=== PATIENT | male | born 1995 | race Caucasian/White ===

== ENCOUNTER 2019-04-25 16:20 | Emergency (ER) | payer BC, SELFPAY ==
[2019-04-25 16:22] VITALS: BP 117/78; PULSE 89; RESP 16; TEMP 36.7; O2SAT 100; BMI 22.7
--- NOTE | 2019-04-25 16:30 | EKG12_ITS ---
Test Reason : CP Blood Pressure : / mmHG Vent. Rate : 087 BPM Atrial Rate : 087 BPM P-R Int : 124 ms QRS Dur : 082 ms QT Int : 340 ms P-R-T Axes : 068 073 015 degrees QTc Int : 409 ms Normal sinus rhythm Nonspecific T wave abnormality Abnormal ECG Confirmed by FELIBERTO DAVIS, PADMINI ([id number]), editorial specialist ORLANDO CHAN ([id number]) on 04/27/2019 11:21:50 AM Referred By: DERECK/NOEL Confirmed By:PADMINI DAO MD
--- NOTE | 2019-04-25 17:21 | RAD_ITS ---
STUDY: X-RAY CHEST REASON FOR EXAM: Male, 24 years old. Shortness of breath. TECHNIQUE: PA and lateral views of the chest. COMPARISON: April 30, 2015 FINDINGS: The lungs remain hyperinflated. There is no new focal consolidation. Normal size heart. Normal mediastinum and johnny. Normal visualized pulmonary arteries. Normal visualized aortic arch and descending thoracic aorta. Normal visualized thoracic spine. Normal visualized ribs, clavicles, and shoulders. There is no demonstrated abnormality of the visualized soft tissue structures of the upper abdomen. RAD/Chest PA and Lateral IMPRESSION: Stable examination demonstrating no acute cardiopulmonary process. Electronically Signed: Tisha Handy MD at 17:45 EST Tel , Service support ,
--- NOTE | 2019-04-25 17:25 | US_ITS ---
STUDY: VENOUS DOPPLER ULTRASOUND - LEFT LOWER EXTREMITY REASON FOR EXAM: Male, 24 years old. Left anterior lateral thigh lump. TECHNIQUE: Ultrasound evaluation of the deep vein system to include gusman-scale imaging and compression was performed. Gusman-scale imaging and Doppler sonographic evaluation, including duplex spectral analysis and qualitative color flow sonography, was performed. COMPARISON: None. FINDINGS: Common Femoral Vein: Normal compression, spontaneity and augmentation. Normal color Doppler. Common Femoral Vein/Greater Saphenous Junction: Normal compression Femoral Proximal: Normal compression. Femoral Middle: Normal compression, spontaneity and augmentation. Normal color Doppler. Femoral Distal: Normal compression. Popliteal Vein: Normal compression, spontaneity and augmentation. Normal color Doppler. Posterior Tibial Vein: Normal compression, spontaneity and augmentation. Normal color Doppler. Peroneal Vein: Normal compression, spontaneity and augmentation. Normal color Doppler. A dedicated ultrasound of the region of concern demonstrates no discrete solid or cystic lesion. US/Venous Duplex Imag/Limited/Uni IMPRESSION: No demonstrated deep vein thrombosis. Electronically Signed: Tisha Handy MD at 17:59 EST Tel , Service support ,
--- NOTE | 2019-04-25 17:25 | ED.VISSUMM ---
- ER Visit Summary Date of Service: 04/25/19 Chief Complaint: Cellulitis History of Present Illness: The patient is a 24 M with swelling to his left anterior thigh. He noticed this earlier today. Nothing seemed to bring it on or make it worse. Nothing seems to make it better. He never had this before. It causes him some discomfort. Throughout the day, he started to have chest pain or shortness of breath as well. Nothing seemed to bring this on. No history of this. No history of DVTs, travel, or other DVT/PE risk factors. No history of heart disease, lung disease, or vascular disease. He is a smoker. Physical Examination: Afebrile and vital signs unremarkable. Lungs clear. Heart regular. Patient has a soft tissue mass approximately half the size of his palm to his left anterior thigh which seems to be in the subcutaneous level. There is no significant tenderness. No skin changes. No redness. No fluctuance. He is neurovascular intact with good strength and sensation. Test Results: Ultrasound pending. EKG shows sinus rhythm at a rate of 87 with nonspecific T wave changes. Chest x-ray pending. Emergency Department Course and Treatment: I am not sure that the patient's soft tissue mass and his chest pain or shortness of breath are related. He has no risk factors for DVT or PE. We will check an ultrasound for blood clots and possibly to visualize this mass better. There is nothing to suggest abscess, muscle rupture, hematoma. We will evaluate his chest pain and shortness of breath. EKG is nonspecific sinus rhythm. Chest x-ray pending. No other pertinent findings on history or exam. Again, this is likely unrelated. Chest x-ray unremarkable. Ultrasound was negative. Ultrasound in the area of the mass did not reveal any abnormalities. Patient will need outpatient follow-up for this. There is no indication for hospitalization or further emergent testing. Patient has a PCP and will follow-up. Return for any new or worsening issues. Treatment Plan: As above Disposition: Discharged Impression: 1. Left thigh soft tissue mass This note was generated with [employer] software. It may contain incorrect words, spelling, and punctuation that were not noted in review of the chart prior to signing ED Disposition - Plan for ED Patient: Referrals: Rodolfo Harrison MD [Primary Care Provider] -
--- NOTE | 2019-04-25 17:59 | ED.DEP ---
ED Disposition - Plan for ED Patient: Instructions: CHEST PAIN, NonCardiac Referrals: Rodolfo Harrison MD [Primary Care Provider] -
[2019-04-25 18:15] VITALS: BP 121/81; PULSE 81; RESP 16; O2SAT 99
== END 2019-04-25 18:16 | disposition home or self-care (01) ==
LOC: ED 17:22
PROVIDERS: Emergency Provider Emergency Medicine; Family Provider Family Medicine; PCP Family Medicine
DX: R22.9 Localized swelling, mass and lump, unspecified (principal); F17.200 Nicotine dependence, unspecified, uncomplicated
CPT/HCPCS: 71046; 93005; 93971; 99283

== ENCOUNTER 2024-03-02 22:00 | Emergency (ER) | payer SELFPAY ==
[2024-03-02 22:07] VITALS: BP 139/91; PULSE 99; RESP 16; TEMP 36; O2SAT 100; BMI 25.8
--- NOTE | 2024-03-02 22:40 | EDS_ITS ---
HPI History of Present Illness Chief Complaint: Dental Informant: patient and spouse/S.O. Narrative Narrative: 28-year-old male has had a right mandibular molar that is decayed and was bothering him off and on for the last month but severe today. It was not hurti ng too bad yesterday. He denies any systemic symptoms or fevers. No bleeding or discharge. Pain was radiating back to his right ear earlier but not now. He denies noting any swelling. No trouble swallowing. PFSH PFSH Medical History no medical history no medical history Home Medications ?Medication ?Instructions ?Recorded ?Last Taken ?Type amoxicillin 500 mg tablet 500 mg PO TID #30 tabs 03/02/24 Unknown Rx hydrocodone-acetaminophen 5-325mg 1 tab PO Q6H PRN PRN Pain 3 days 03/02/24 Unknown Rx 5mg-325mg #10 TABLETS Allergy/AdvReac Type Severity Reaction Status Date / Time No Known Allergies Allergy Verified 03/02/24 22:09 Social History Smoking Status: Current every day smoker tobacco type: cigarettes ROS ROS ED Constitutional Constitutional ED: Denies chills or fever(s) Eyes Eyes: Denies change in vision or double vision ENT ENT ED: Reports dental pain; Denies sinus pain or throat swelling Cardiovascular Cardiovascular: Denies chest pain or palpitations Respiratory/Chest Respiratory/Chest: Denies cough or dyspnea Integumentary Denies abscess or rash Neurologic Neurologic: Denies headache(s), paresthesias or weakness EXAM Physical Exam Const Vital Signs: 03/02/24 22:07 Temperature 96.8 F L Temperature Source Temporal Pulse Rate 99 Respiratory Rate 16 Blood Pressure 139/91 H Blood Pressure Mean 107 Pulse Ox 100 Oxygen Delivery Method Room Air Positive well nourished and well developed General Appearance ED: well developed and NAD HEENT HEENT Narrative: Tooth #30 has focal decay posteriorly, the tooth is tender, there is no bleeding or discharge. There is no trismus. There is no swelling or abscess palpable or other tenderness. No tongue elevation or sublingual swelling/tenderness. Face and Sinus: sinuses nontender Throat: posterior oropharynx normal Eyes PERRL and EOMs intact bilaterally Neck no lymphadenopathy and supple General: normal visual inspection; Negative for anterior neck swelling or tenderness Resp normal respiratory effort Neuro oriented x3 and CN's II-XII intact bilaterally Sensorium / Orientation: alert Gait (Neuro): normal gait Psych mental status grossly normal and thought process normal Skin no rashes or lesions noted and no wounds MDM MDM MDM Narrative Medical decision making narrative: Patient preferred to have a dental nerve block. We discussed an inferior alveolar nerve block which he was amenable to which was attempted but did not give him good anesthesia. Therefore sprayed benzocaine locally afterwards and placed temporary filling in the area, he was started on amoxicillin, and I will give him a prescription for that as well as something for pain if he desires. R ecommend dental follow-up. Resource list given. Procedures Other Procedures Procedure(s): Right inferior alveolar nerve block: After verbal consent from the patient, using 27-gauge needle placed 1.8 cc of 0.5% Marcaine with epinephrine into the inferior alveolar nerve area without aspirating any blood prior to injecting the medication. Tolerated well no complications, but anesthesia not obtained. Temporary Cavit filling placed afterwards into tooth #30 cavity after sprain with 20% benzocaine 1 second. Discharge Plan Triage Chief Complaint: Dental ED Provider: Ty Lui Dx/Rx/DC Orders Clinical Impression: Pain due to dental caries Instructions: ED Dental Cavity Prescriptions: New hydrocodone-acetaminophen 5-325 mg tablet 1 tab PO Q6H PRN PRN (Reason: Pain) 3 Days Qty: 10 0RF amoxicillin 500 mg tablet 500 mg PO TID Qty: 30 0RF Primary Care Provider: Rodolfo Harrison Referrals: Rodolfo Harrison MD [Primary Care Provider] - Dentist,Your [STAFF PHYSICIAN] - As soon as possible Print Language: Spanish Disposition Disposition: Home, Self Care
[2024-03-02] MEDS: AMOXICILLIN 500 MG CAPSULE PO (22:48)
[2024-03-02] MEDS: HYDROcodone Bitartrate/Apap 5/325 Tablet PO (23:34)
[2024-03-02 23:35] VITALS: BP 139/99; PULSE 100; RESP 18; TEMP 36.6; O2SAT 97
== END 2024-03-02 23:40 | disposition home or self-care (01) ==
PROVIDERS: Emergency Provider Emergency Medicine; PCP Family Medicine; Visit Provider Emergency Medicine
DX: K02.9 Dental caries, unspecified (principal); F17.210 Nicotine dependence, cigarettes, uncomplicated
CPT/HCPCS: 64999; 99283